=== PATIENT | female | born 1995 | race Caucasian/White ===

== ENCOUNTER 2018-03-30 16:16 | Emergency (ER) | payer MEDICAID ==
[~2018-03-30] VITALS: Ht 157.5 cm; Wt 56.7 kg
[2018-03-30 16:38] VITALS: Ht 157.5 cm; Wt 56.7 kg
[2018-03-30 18:54] VITALS: BP 109/55
== END 2018-03-30 18:54 | disposition home or self-care (01) ==
LOC: ED 16:16
DX: S63.91XA Sprain of unspecified part of right wrist and hand, initial encounter (principal); S60.511A Abrasion of right hand, initial encounter; W26.8XXA Contact with other sharp object(s), not elsewhere classified, initial encounter; Y93.89 Activity, other specified; Y92.090 Kitchen in other non-institutional residence as the place of occurrence of the external cause; Y99.8 Other external cause status
CPT/HCPCS: 90715; Q0092